=== PATIENT | male | born 1950 | race Caucasian/White ===

== ENCOUNTER 2018-06-11 13:10 | Emergency (ER) | payer MEDICARE, OTHER ==
[2018-06-11 13:50] VITALS: BP 153/93
--- NOTE | 2018-06-11 14:04 | UC ---
Ear Complaint HPI - HPI Summary HPI Summary: patient has been on a course of corticosporin ear drops and then a few weeks later tobra HC ear drops---has continued pain itching and burning in ear canals left is right than some drainage from left ear--- - History of Current Complaint Chief Complaint: UCEar Stated Complaint: EAR ISSUE Time Seen by Provider: 06/11/18 13:48 Hx Obtained From: Patient Onset/Duration: Gradual Onset, Lasting Weeks, Still Present Pain Intensity: 8 Pain Scale Used: 0-10 Numeric Aggravating Factors: Nothing Alleviating Factors: Nothing Associated Signs/Symptoms: Positive: Discharge - Allergies/Home Medications Allergies/Adverse Reactions: Allergies Allergy/AdvReac Type Severity Reaction Status Date / Time bee venom protein (honey bee) Allergy Severe selling Verified 06/11/18 13:52 lips face oxycodone Allergy Intermediate Hives Verified 06/11/18 13:51 shellfish derived Allergy Intermediate vomitting Verified 06/11/18 13:51 thimerosal Allergy Intermediate Pain Verified 06/11/18 13:51 Home Medications: Home Medications Tamsulosin CAP* [Flomax CAP*] 0.4 mg PO DAILY 06/11/18 [History Confirmed ] PMH/Surg Hx/FS Hx/Imm Hx Previously Healthy: No GI/ History: Gastroesophageal Reflux, Other Other GI/ History: enlarged prostate - Surgical History Surgical History: Yes Surgery Procedure, Year, and Place: RIGHT AND LEFT KNEE- REMOVAL OF LATERAL MENISCUS-[facility]. RIGHT AND LEFT ARTHROSCOPY-[facility]. BILATERAL elbow TENDON REPAIR. LEFT shoulder REPAIR - Family History Known Family History: Positive: None, Other - bladder CA (mother), slow heart rate/pacemaker (father) - Social History Occupation: Retired Lives: With Family Alcohol Use: Daily Alcohol Amount: 1 DRINK DAILY Substance Use Type: None Smoking Status (MU): Never Smoked Tobacco - Immunization History Most Recent Tetanus Shot: unrecalled Review of Systems Constitutional: Negative Skin: Negative Eyes: Negative ENT: Ear Ache - L>R Respiratory: Negative Cardiovascular: Negative Gastrointestinal: Negative Genitourinary: Negative Motor: Negative Neurovascular: Negative Musculoskeletal: Negative Neurological: Negative Psychological: Negative Is Patient Immunocompromised?: No All Other Systems Reviewed And Are Negative: Yes Physical Exam Triage Information Reviewed: Yes Appearance: Well-Appearing, No Pain Distress, Well-Nourished Vital Signs: Initial Vital Signs Temp 98.5 F 07/22/18 13:45 Pulse 78 06/11/18 13:45 Resp 20 06/11/18 13:45 BP 153/93 06/11/18 13:45 Pulse Ox 100 06/11/18 13:45 Vital Signs Reviewed: Yes Eye Exam: Normal Eyes: Positive: Conjunctiva Clear ENT Exam: Normal ENT: Positive: Normal ENT inspection, Hearing grossly normal, Pharynx normal, TMs normal, Other - canals red and sore to touch. Negative: Nasal congestion, Trismus, Muffled voice, Hoarse voice Dental Exam: Normal Neck exam: Normal Neck: Positive: Supple, Nontender Respiratory Exam: Normal Respiratory: Positive: Chest non-tender, No respiratory distress, No accessory muscle use Cardiovascular Exam: Normal Cardiovascular: Positive: RRR, Pulses Normal, Brisk Capillary Refill Musculoskeletal Exam: Normal Musculoskeletal: Positive: Strength Intact, ROM Intact, No Edema Neurological Exam: Normal Neurological: Positive: Alert, Muscle Tone Normal Psychological Exam: Normal Skin Exam: Normal Ear Complaint Course/Dx - Course Course Of Treatment: Vosol HC, culture drainage from left ear, follow with pcp and ent provides in next 1-2 weeks - Differential Dx/Diagnosis Provider Diagnoses: otitis extera (Bilat) hypertension Discharge - Sign-Out/Discharge Documenting (check all that apply): Patient Departure - Discharge Plan Condition: Stable Disposition: HOME Patient Education Materials: Otitis Externa (ED), How to Use Ear Drops (ED), Hypertension (ED) Referrals: Israel Johnson MD [Medical Doctor] - 1 Week Wilfrid Dunn MD [Primary Care Provider] - (2 weeks) - Billing Disposition and Condition Condition: STABLE Disposition: Home
== END 2018-06-11 14:52 | disposition home or self-care (01) ==
LOC: UCEAST 13:10
DX: H60.93 Unspecified otitis externa, bilateral (principal); I10 Essential (primary) hypertension; Z88.5 Allergy status to narcotic agent; N40.0 Benign prostatic hyperplasia without lower urinary tract symptoms
CPT/HCPCS: 87070; 87077; 87205; 99213; G0463

== ENCOUNTER 2018-08-13 13:49 | Emergency (ER) | payer MEDICARE, OTHER ==
[2018-08-13 14:01] VITALS: BP 130/78
[2018-08-13] MEDS ORDERED: Tetan/Diph/Pertus SYR(Tdap)* 0.5 ML SYR(BOOSTRIX) use SYR IM ONE (14:23)
--- NOTE | 2018-08-13 14:32 | UC ---
Skin Complaint HPI - HPI Summary HPI Summary: Patient presents with foreign body in left thumb. He was fishing and got a fish hook in the pad of his left thumb. He attempted to remove it at home and cut the end of the fish hook off. He was unable to get it out so he now comes into the clinic for removal. Last tetanus unknown. - History of Current Complaint Chief Complaint: UCForeignBody Time Seen by Provider: 08/13/18 14:03 Stated Complaint: FB IN THUMB Hx Obtained From: Patient Onset/Duration: Sudden Onset, Lasting Hours Skin Exposure Onset/Duration: Hours Ago Timing: Constant Onset Severity: Moderate Current Severity: Moderate Pain Intensity: 3 Location: Discrete, Hand (Left) Character: Painful Aggravating Factor(s): Touch Alleviating Factor(s): Nothing Associated Signs & Symptoms: Positive: Negative - Allergy/Home Medications Allergies/Adverse Reactions: Allergies Allergy/AdvReac Type Severity Reaction Status Date / Time bee venom protein (honey bee) Allergy Severe selling Verified 08/13/18 13:55 lips face oxycodone Allergy Intermediate Hives Verified 08/13/18 13:55 shellfish derived Allergy Intermediate vomitting Verified 08/13/18 13:55 thimerosal Allergy Intermediate Pain Verified 08/13/18 13:55 Review of Systems Constitutional: Negative Skin: Other - fish hook in pad of left thumb Eyes: Negative ENT: Negative Respiratory: Negative Cardiovascular: Negative Gastrointestinal: Negative Genitourinary: Negative Motor: Negative Neurovascular: Negative Musculoskeletal: Negative Neurological: Negative Psychological: Negative All Other Systems Reviewed And Are Negative: Yes PMH/Surg Hx/FS Hx/Imm Hx Previously Healthy: Yes Neurological History: Migraine - Surgical History Surgical History: Yes Surgery Procedure, Year, and Place: RIGHT AND LEFT KNEE- REMOVAL OF LATERAL MENISCUS-[facility]. RIGHT AND LEFT ARTHROSCOPY-[facility]. BILATERAL elbow TENDON REPAIR. LEFT shoulder REPAIR - Family History Known Family History: Positive: None, Other - bladder CA (mother), slow heart rate/pacemaker (father) - Social History Lives: With Family Alcohol Use: Daily Alcohol Amount: 1 DRINK DAILY Substance Use Type: None Smoking Status (MU): Never Smoked Tobacco - Immunization History Most Recent Tetanus Shot: unrecalled Physical Exam Triage Information Reviewed: Yes Appearance: Well-Appearing Vital Signs: Initial Vital Signs Temp 97.7 F 08/13/18 13:57 Pulse 78 08/13/18 13:57 Resp 16 08/13/18 13:57 BP 130/78 08/13/18 13:57 Pulse Ox 98 08/13/18 13:57 Vital Signs Reviewed: Yes Eye Exam: Normal Neck exam: Normal Neck: Positive: 1 Respiratory: Positive: Respiratory distress Cardiovascular Exam: Normal Musculoskeletal Exam: Normal Neurological Exam: Normal Skin Exam: Normal, Other - foreign body left thumb pad. capillary refill less that three seconds, neruo;without deficits. Course/Dx - Course Course Of Treatment: Patient presents with fish hook in the pad of left thumb. Time out performed. Digital block and local bupivaciane was used to anestatize the area. The fish hook was then pushed through without incidnece. Patient tolerated the procedure well. Tetanus updated. Antibiotics prescribed. Follow up in 48 hours. - Differential Diagnoses - Skin Complaint Differential Diagnoses: Foreign Body - Diagnoses Provider Diagnoses: foreign body Discharge - Sign-Out/Discharge Documenting (check all that apply): Patient Departure All imaging exams completed and their final reports reviewed: No Studies - Discharge Plan Condition: Stable Disposition: HOME Prescriptions: Cephalexin CAP* [Keflex CAP*] 500 mg PO QID #40 cap Patient Education Materials: Soft Tissue Foreign Body (ED) Referrals: Wilfrid Dunn MD [Primary Care Provider] - Additional Instructions: Come back in 48 hours for re-check of the puncture wound. - Billing Disposition and Condition Condition: STABLE Disposition: Home
== END 2018-08-13 14:45 | disposition home or self-care (01) ==
LOC: UCEAST 13:49
DX: S60.352A Superficial foreign body of left thumb, initial encounter (principal); X58.XXXA Exposure to other specified factors, initial encounter; Y93.9 Activity, unspecified; Y92.9 Unspecified place or not applicable; Z23 Encounter for immunization; Z91.030 Bee allergy status; Z88.5 Allergy status to narcotic agent; Z91.013 Allergy to seafood
CPT/HCPCS: 10120; 90471; 90715; 99212; G0463